=== PATIENT | female | born 1945 | race Caucasian/White ===

== ENCOUNTER → 2017-01-12 | Outpatient (CLI) | payer OTHER ==
[~2017-01-12] MED LIST: ADVAIR 500/501 E1 INH; AZACTAM IV; Accuneb 0.1.25 MG/3 INH; CHANTIX0.5 MG PO; DELTASONE10 MG PO; DYAZIDE 25 MG-31 CAP PO; FLEXERIL10 MG PO; HUMARA; HUMIRA40 MG/0.1 SC; INHALER; LEVOFLOXACIN500 MG PO; NAPROSYN500 MG PO; PREDNISONE20 MG PO; PRILOSEC20 MG PO; PROAIR HFA0.09 MG/AC IH; PROAIR HFA0.09 MG/AC INH; ROBITUSSIN5 ML PO; TURDOZA INH; VENTOLIN 02.5 MG/3 M INH; VITAMIN D50000 I2 PO; ZITHROMAX Z PA250 MG PO
== END | disposition home or self-care (01) ==
LOC: RAD 09:59
DX: J32.9 Chronic sinusitis, unspecified (principal); R51 Headache

== ENCOUNTER 2019-07-20 15:20 | Inpatient (IN) | payer OTHER ==
[~2019-07-20] VITALS: Ht 160 cm; Wt 142.4 kg
--- NOTE | ~2019-07-20 | EKG ---
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
--- NOTE | ~2019-07-20 | EKG ---
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
--- NOTE | ~2019-07-20 | EKG ---
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
--- NOTE | ~2019-07-20 | PR ---
[place], [place] PROGRESS NOTE [id number] #: [id number] ROOM: 528 DOCTOR: NATIVIDAD BOWER MDASHLIE BIRTHDATE: [birth year] DOS: 07/22/2019 SUBJECTIVE: She has reported reduction in symptoms of shortness of breath, cough and wheezing. There were no symptoms of chest pain. There were no symptoms of hemoptysis. Denies symptoms of headache, diplopia, nausea, vomiting, diarrhea, abdominal pain, hematemesis, melena or hematochezia. Denies any pain of the lower extremities. The patient was continuing empirical heparin therapy that was ordered yesterday until diagnosis of acute pulmonary embolism is excluded. V/Q scan was canceled and the patient underwent a CTA of the chest. REVIEW OF SYSTEMS: Otherwise, noted as negative. OBJECTIVE: GENERAL: The patient noted comfortable at this time, resting on the bed, sitting on the chair. VITAL SIGNS: Normal temperature, respiratory rate 18, heart rate 88, blood pressure 157/74. Heart rate noted 107 previously, which has been currently noted as less than 100. HEENT: Examination shows head was atraumatic. Eyes nonicterus. NECK: Supple. CARDIOVASCULAR: S1, S2 audible. LUNGS: Noted with decreased breath in the lungs bilaterally. ABDOMEN: Soft, nontender. Bowel sounds present. EXTREMITIES: The patient was noted without any acute edema. MUSCULOSKELETAL: Noted without any acute deformities. CENTRAL NERVOUS SYSTEM: Cranial nerves 2-12 intact. LABORATORY DATA: CBC that was done this morning, WBC count 17.2, hemoglobin and hematocrit normal, platelet count were normal. The BMP that was done this morning, BUN 25, creatinine 1.32. CT of the chest does not show any evidence of pulmonary embolism at the present time. Small left lower lobe subsegmental atelectasis was also noted. There was no evidence of acute pneumonia. IMPRESSION: Resolving acute exacerbation of chronic obstructive pulmonary disease with acute bronchitis. There was no evidence of pulmonary embolism, questionable deep venous thrombosis of the left lower extremity or cystic structure as well that warrant further investigation. PLAN OF TREATMENT: At this time, the heparin will be discontinued. Repeat ultrasound will be recommended to be done on Wednesday to assess the structure of the diagnosis still cannot be effectively made with ultrasound, certainly, CT of the chest will be indicated at that time. At this time, the patient would not be undergoing further CT scan to prevent contrast acute kidney injury. Other therapy, plan of management, care plan to be continued as in progress with usual care. Supportive care and other therapies. [place], [place] PROGRESS NOTE NAME: IAN ANDERSON UNIT #: [id number] ROOM: 528 DOCTOR: ASHLIE CALDERON MD BIRTHDATE: [birth year] ASHLIE HENSON MD CM:PNTRANS [id number] ASHLIE BOWER MD 07/23/19699 interface
--- NOTE | ~2019-07-20 | EKG ---
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
--- NOTE | ~2019-07-20 | PR ---
[place], [place] PROGRESS NOTE [id number] UN[facility] #: [id number] ROOM: 528 DOCTOR: NATIVIDAD BOWER MD,ASHLIE BIRTHDATE: [birth year] DOS: 07/24/2019 PULMONARY PROGRESS NOTE SUBJECTIVE: The patient noted comfortable at this time, resting on the bed, stating improvement in the symptoms of shortness of breath with gradual improvement in the ambulation. She denies symptoms of chest pain or cough. OBJECTIVE: VITAL SIGNS: Normal temperature, respiratory rate 20, heart rate 105, blood pressure 150/62. Pulse oxygen saturation on 3 liters nasal cannula 97% saturation recorded. HEENT: Examination shows head was atraumatic. Eyes nonicterus. NECK: Supple. CARDIOVASCULAR: S1, S2 is audible. LUNGS: The patient without any wheeze or crackles. ABDOMEN: Soft and nontender. Bowel sounds present. EXTREMITIES: The patient noted without any acute edema. IMPRESSION: Stable respiratory status was noted at the present time with resolving acute exacerbation of chronic obstructive pulmonary disease, rule out deep venous thrombosis of the lower extremity or other abnormalities. PLAN OF MANAGEMENT: Discharge planning is based on the ultrasound results. If the ultrasound results does determine the accurate pathology of lower extremity, she will be discharged. Otherwise, additional workup will be ordered accordingly. ASHLIE HENSON MD CM:PNTRANS [id number] ASHLIE BOWER MD 07/24/19 1402 interface
--- NOTE | ~2019-07-20 | PR ---
[place], [place] PROGRESS NOTE NAME: IAN ANDERSON UNIT #: [id number] ROOM: 528 DOCTOR: NATIVIDAD BOWER MD,ASHLIE BIRTHDATE: [birth year] DOS: 07/23/2019 PULMONARY PROGRESS NOTE SUBJECTIVE: The patient has been noted comfortable at this time with reduction of respiratory symptoms continued. She has not been ambulating more than her bed to the bathroom. Shortness of breath which has noted to be decreased for the patient gradually. Denies symptoms of chest pain, fever, chills or any acute wheezing at rest. OBJECTIVE: VITAL SIGNS: Normal temperature, respiratory rate 18, heart rate of 87, blood pressure 132/76, pulse oxygen saturation on 3 liters nasal cannula 93% saturation recorded. HEENT: Examination shows head was atraumatic. Eyes nonicterus. NECK: Supple. CARDIOVASCULAR: S1, S2 audible. LUNGS: Decreased breath sounds noted in the lungs bilaterally. ABDOMEN: Soft, nontender and obese. EXTREMITIES: The patient without any acute edema. IMPRESSION: Gradual and progressive resolution of acute exacerbation of chronic obstructive pulmonary disease, decreased respiratory symptoms was noted. PLAN OF CARE: Continue bronchodilators. Decrease the Solu-Medrol to 40 mg daily dosing at the present time. Ambulation was encouraged with use of a portable oxygen in the home setting. Potential discharge for the patient would be considered in the morning depending on further improvement of the respiratory status and symptoms. ASHLIE HENSON MD CM:PNTRANS [id number] ASHLIE BOWER MD 07/24/19 0415 interface
--- NOTE | ~2019-07-20 | CON ---
[place], [place] REPORT OF CONSULTATION [id number] UNIT #: [id number] ROOM: 528 DOCTOR: ASHLIE CALDERON MD BIRTHDATE: [birth year] DOS: 07/21/2019 PULMONARY CONSULTATION, EVALUATION, AND MANAGEMENT CONSULTATION REQUESTED BY: Hospitalist service. REASON FOR CONSULTATION: For assessment of shortness of breath. HISTORY OF PRESENT ILLNESS: This is a 73-year-old white female patient who has been noted acutely ill for the past 4 weeks. The patient stated symptoms of having coughing, chest congestion, and shortness of breath. I could not get out of the house. She has contacted her primary care physician and has been given Keflex with partial reduction of the respiratory symptom. The patient has contacted my office for assessment, was seen in the office transiently, as the patient in the waiting room has been noted in severe respiratory distress acutely The patient was noted with hyperventilation as well and significant shortness of breath. The chest auscultation noted decreased breath sounds, pulse oxygen saturation recorded was 78% on 3 liters nasal cannula. Ambulance was called. The patient was sent to the hospital for further care. The patient has been brought to the hospital and assessed in the Emergency Room and hospitalized. Chest x-ray was done on admission, which were not reported with any findings of acute congestive heart failure or acute pneumonia. Currently, the patient has been admitted to the hospital and further treated. REVIEW OF SYSTEMS: CONSTITUTIONAL: Fatigue and tiredness reported without any symptoms of fever or chills. EYES: Denies any burning, redness, or tenderness. EARS, NOSE, THROAT SYMPTOMS: Denies sore throat, hoarseness, or otalgia. CARDIOVASCULAR: Denies anginal symptoms of palpitations, edema of the lower extremity were reported. There were no symptoms of anginal pain. GASTROINTESTINAL: Denies dysphagia, nausea, vomiting, diarrhea, abdominal pain, hematemesis, melena, or hematochezia. SKIN: Denies any abnormal lesions or rashes. CENTRAL NERVOUS SYSTEM: Denies dizziness, headache, diplopia, or syncopal episodes. Remaining systems were reviewed that was noted all negative. PAST MEDICAL HISTORY: Known with history of: 1. COPD. 2. Gastroesophageal reflux. 3. Chronic hypoxic respiratory failure, use of oxygen supplementation, usually 3 liters nasal cannula. 4. Congestive heart failure, systolic and diastolic dysfunction at this time was unknown. 5. Psoriasis. 6. Essential hypertension. 7. Chronic obesity. 8. Rheumatoid arthritis. [place], [place] REPORT OF CONSULTATION NAME: IAN ANDERSON UNIT #: [id number] ROOM: 528 DOCTOR: ASHLIE CALDERON MD BIRTHDATE: [birth year] SOCIAL HISTORY: The patient lives at home. She is and has 4 children. Tobacco use reported from age of [age] years old, 1.5 pack of cigarettes until 07/2018. Denies history of alcohol use or illicit drugs. PAST SURGICAL HISTORY: 1. T and A. 2. Tubal ligation. 3. Partial hysterectomy. 4. Carpal tunnel release on the right wrist. FAMILY HISTORY: The patient's father at 52-year-old, complication of lung cancer. Mother at 72 with complication of myocardial infarction. HOME MEDICATIONS: Listed as ProAir HFA inhaler, Ventolin HFA inhaler, use of Advair 500/50, Lasix 40 mg oral, Singulair 10 mg orally daily, Prilosec 20 mg p.o. daily, and potassium 10 mEq p.o. daily as well. CURRENT MEDICATIONS: Which has been administered and given actively this hospitalization were Solu-Medrol 60 mg IV b.i.d., DuoNeb q.4 hours, IV Rocephin, and some other p.r.n. meds. DRUG ALLERGIES: NOTED ALLERGY TO THE FLU VACCINATION. PHYSICAL EXAMINATION: GENERAL: A 73-year-old female patient noted quite comfortable this morning of assessment. Height of 5 feet 3 inches, weight 314 pounds. VITAL SIGNS: For the patient, which are recorded shows a normal temperature, respiratory rate 20-28, heart rate 72-108, blood pressure 150/67-152/84. Pulse oxygen saturation on 3 liters nasal cannula 99% saturation recorded. HEENT: Shows head was atraumatic. Eyes nonicterus. NECK: Supple. It was obese. Decreased posterior pharyngeal space, high tongue base, crowding of soft tissue structures. CARDIOVASCULAR: S1, S2 audible. LUNGS: Decreased breath sounds noted in the lower portion of the lungs bilaterally. ABDOMEN: Soft, nontender. Bowel sounds present. EXTREMITIES: Edema of the extremities. MUSCULOSKELETAL: Without acute deformities. CENTRAL NERVOUS SYSTEM: Cranial nerves 2-12 intact. LABORATORY DATA: CBC yesterday in the emergency room, WBC count 11.6, hemoglobin, hematocrit, and platelet count was normal, and 1.4% eosinophils. PT/PTT were noted normal yesterday. CMP that was done on 07/20/2019, BUN 21, creatinine 1.34. Remaining electrolytes normal. Total protein elevated at 8.4 yesterday. Labs D-dimer minimally elevated at 0.66. Troponins were noted as normal. CBC that was done this morning as a normal CBC. CMP this morning, BUN 21, creatinine 1.11, and glucose 156. Remaining electrolytes remains normal. The review of the radiology data, chest x-ray that was done yesterday, one-view was reviewed, noted without any findings of acute congestive heart failure. [place], [place] REPORT OF CONSULTATION NAME: IAN ANDERSON UNIT #: [id number] ROOM: 528 DOCTOR: NATIVIDAD BOWER MD,ASHLIE BIRTHDATE: [birth year] Finding was noted limited in the lower portion of the lung because of the breast augmentation shadow. Ultrasound of the lower extremity was completed and reported with limited findings with questionable DVT, right popliteal vein. The image quality of this area were not noted optimal. The patient was recommended contrast enhanced CT scan lower extremity for further assessment. IMPRESSION: 1. The patient who has been currently admitted to the hospital noted symptoms of respiratory distress, [id number] hypoxic respiratory failure with acute exacerbation of chronic obstructive pulmonary disease. 2. Questionable deep venous thrombosis of the lower extremity to be excluded. 3. History of chronic severe obesity as well. 4. History of previous congestive heart failure as well, whether a preserved ejection fraction or reduced ejection fraction was unknown. 5. General anxiety disorder was also noted. 6. The patient with elevation of creatinine noted with may be related to intravascular volume depletion with improvement in creatinine was noted this morning. PLAN MANAGEMENT: Continuation of the corticosteroids and bronchodilators. Preferable to obtain CT of the chest as well and possible repeat ultrasound of the lower extremity could be done. Anticoagulants could be given until the diagnosis of pulmonary embolism is excluded. Continue oxygen supplementation, maintain pulse ox 92% or greater. If the patient develops any further distress arterial blood gas will be obtained for further assessment of ventilatory status. At this time, the patient's respiratory distress, had resolved and would not require any arterial blood gases immediately. Other therapy, plan of management. Additional treatment changes will be made based on progression of the illness. Supportive care, other plan of management therapy, plan of care. Usual medical management, other therapies. Further changes in the treatment will be done based on the progression of illness and available any new data on this hospitalization. Thanks for allowing me to participate in the care of this patient. ASHLIE HENSON MD CM:CONSTR:REPORT OF CONSULTATION 1322 07/22/19 0220 interface
[2019-07-20 15:25] VITALS: BP 159/67
[2019-07-20 15:55] LABS: BASO # 0.1 10*3/uL (0.0-0.1); BASO % 0.5 % (0.0-1.0); EOS # 0.2 10*3/uL (0.0-0.4); EOS % 1.4 % (1.0-4.0); HEMATOCRIT 42.2 % (37.0-47.0); HEMOGLOBIN 13.6 g/dl (12.0-16.0); LYMPH # 3.4 10*3/uL (1.3-4.4); LYMPH % 29.5 % (27.0-41.0); MEAN CELL VOLUME 96.1 fl (81.0-99.0); MEAN CORPUSCULAR HGB CONC 32.2 g/dl (33.0-37.0); MEAN PLATELET VOLUME 10.3 fl (9.6-12.3); MONO % 8.6 % (3.0-9.0); NEUT # 6.9 10*3/uL (2.3-7.9); NEUT % 59.6 % (47.0-73.0); PLATELET COUNT AUTOMATED 218 10*3/uL (130-400); RED BLOOD COUNT 4.39 10*6/uL (4.10-5.10); RED CELL DISTRI WIDTH 13.3 % (0-14.5); WHITE BLOOD COUNT 11.6 10*3/uL (4.8-10.8)
[2019-07-20 16:08] LABS: ACT PARTIAL THROMBO TIME 26.9 SECONDS (20.0-32.1)
[2019-07-20 16:11] LABS: ALBUMIN 3.5 gm/dl (3.1-4.5); CREATININE 1.34 mg/dL (0.55-1.02); POTASSIUM 4.3 mmol/L (3.5-5.1); TOTAL PROTEIN 8.4 gm/dL (6.4-8.2)
[2019-07-20 16:12] LABS: TROPONIN I 0.023 ng/ml (<0.045)
--- NOTE | 2019-07-20 16:13 | NUR ---
2.6 LACTIC ACID CALLED CRITICAL AT THIS TIME. DR BAILEY NOTIFIED.
[2019-07-20 16:29] VITALS: BP 169/65
[2019-07-20 17:15] VITALS: BP 168/78
[2019-07-20 18:16] VITALS: BP 172/70
--- NOTE | 2019-07-20 18:19 | NUR ---
PT HAS DRY/SCALY SKIN TO BILATERAL LOWER LEGS. LEGS ARE TIGHT WITH EDEMA. THERE ARE NO OPEN WOUNDS. QUIN BURTON
--- NOTE | 2019-07-20 18:35 | NUR ---
A 73, admitted to 5E, under the services of BRIANNA Hogue DO with a diagnosis of ACUTE RESPIRATORY FAILURE WITH HYPOXIA, SEVERE SEPSIS, PNEUMONITIS. Chief complaint is SHORTNESS OPF BREATH. Patient arrived via bed from ER. Monitor applied. Initial assessment completed. Vital signs taken and recorded. BRIANNA HOGUE DO notified of admission to the unit. Orders received. See assessment for past medical history, medications and allergies. Patient and/or family oriented to unit. [facility] visitation policy reviewed. Clothing/patient valuable form completed. KRISTOPHER EPPERSON
[2019-07-20] MEDS ORDERED: LASIX40 MG PO (19:00)
[2019-07-20] MEDS ORDERED: KLOR-CON M1010 ME1 PO (19:01)
[2019-07-20] MEDS ORDERED: CYCLOBENZAPRINE10 MG PO (19:02)
[2019-07-20] MEDS ORDERED: PRILOSEC20 M1 PO (19:02)
[2019-07-20] MEDS ORDERED: SINGULAIR10 M1 PO (19:03)
--- NOTE | 2019-07-20 19:36 | NUR ---
DR. MCALLISTER NOTIFIED OF CRITICAL LACTIC ACID OF 2.5.
--- NOTE | 2019-07-20 19:37 | NUR ---
DR. HENSON NOTIFIED OF CONSULT PER ORDER.
[2019-07-21] VITALS: BP 150/82
[2019-07-21 06:23] LABS: BASO % 0.2 % (0.0-1.0); HEMATOCRIT 40.6 % (37.0-47.0); HEMOGLOBIN 13.1 g/dl (12.0-16.0); LYMPH # 1.2 10*3/uL (1.3-4.4); LYMPH % 11.5 % (27.0-41.0); MEAN CELL VOLUME 95.1 fl (81.0-99.0); MEAN CORPUSCULAR HGB 30.7 pg (27.0-31.0); MEAN CORPUSCULAR HGB CONC 32.3 g/dl (33.0-37.0); MEAN PLATELET VOLUME 10.3 fl (9.6-12.3); MONO # 0.2 10*3/uL (0.1-1.0); NEUT % 85.7 % (47.0-73.0); PLATELET COUNT AUTOMATED 211 10*3/uL (130-400); RED BLOOD COUNT 4.27 10*6/uL (4.10-5.10); RED CELL DISTRI WIDTH 13.5 % (0-14.5); WHITE BLOOD COUNT 10.5 10*3/uL (4.8-10.8)
[2019-07-21 06:39] LABS: ALBUMIN 3.1 gm/dl (3.1-4.5); CREATININE 1.11 mg/dL (0.55-1.02); PHOSPHOROUS 2.6 mg/dL (2.5-4.9)
--- NOTE | 2019-07-21 08:43 | NUR ---
Occupational Therapy referral received and chart reviewed. Patient to have further testing today to r/o pulmonary emboli. OT will wait for further evaluation until testing completed. Thank you. Estrellita Leon OTR/l
--- NOTE | 2019-07-21 09:30 | NUR ---
PHYSICAL THERAPY Physical therapy referral received. Patient being ruled out for pulmonary embolism. Awaiting results prior to attempting PT evaluation. thank you Josie Merida, PT, DPT
--- NOTE | 2019-07-21 11:14 | NUR ---
Patient not available for Occupational Therapy evaluation as she is leaving her room for testing via w/c. OTR will attempt at a later time. Estrellita Leon OTR/L
--- NOTE | 2019-07-21 11:15 | NUR ---
PHYSICAL THERAPY Physical therapy evaluation attempted. Pt leaving room for procedure. Will attempt evaluation when results are known for lung scan and Pulmonary embolism. Thank you Josie gray, PT, DPT
[2019-07-21 12:00] VITALS: BP 152/84
--- NOTE | 2019-07-21 12:38 | NUR ---
Document Imaging Specialist in to talk to patient. Patient states lives at HOME with . There are FEW steps in the home. Physician: [facility]acy: [facility]: NO Patient's level of ADLs: INDEPENDENT Patient has working utilities: YES DME: OXYGEN, PROTABLE TANKS, NEBULIZER Follow-up physician's appointment after d/c: WILL BE MADE BY HOSPITALIST NURSE DIRECTOR ON DISCHARGE Does patient want to access PORTAL?: NO Discharge plan PT LIVES AT HOME WITH HER AND IS INDEPENDENT IN HER CARE. DENIES SHE WILL HAVE ANY NEEDS ON DISCHARGE. STATES SHE HAS OXYGEN, PORTABLE TANKS, AND NEBULIZER. PT STATES SHE GETS O2 THROUGHT [place] IN [place]. PLAN IS TO RETURN HOME WHEN MEDICALLY STABLE. WILL CONTINUE TO FOLLOW. WILL TAKE PT HOME ON DISCHARGE.. SHERIF DODD
[2019-07-21 14:58] LABS: ABG BASE EXCESS -3.3 mmol/L (-2.0-2.0); ABG HCO3 21.3 mmol/l (22-26); ABG O2 SATURATION 98.4 % (95-97); ARTERIAL BLOOD GAS PCO2 38.8 mmHg (35-45); ARTERIAL BLOOD GAS PH 7.358 (7.35-7.45)
[2019-07-21 15:28] LABS: CREATININE 1.31 mg/dL (0.55-1.02); POTASSIUM 4.2 mmol/L (3.5-5.1); TROPONIN I 0.02 ng/ml (<0.045)
[2019-07-21 17:10] VITALS: BP 175/68
[2019-07-21 20:00] VITALS: BP 152/60
[2019-07-22] VITALS: BP 140/74; BP 169/77
[2019-07-22 06:22] LABS: CREATININE 1.22 mg/dL (0.55-1.02); POTASSIUM 3.7 mmol/L (3.5-5.1)
--- NOTE | 2019-07-22 06:25 | NUR ---
APTT 79.2. HEPARIN GTT OFF FOR 1 HOUR. PATIENT RESTING IN RECLINER.
[2019-07-22 06:38] LABS: BASO % 0.2 % (0.0-1.0); HEMATOCRIT 38.7 % (37.0-47.0); HEMOGLOBIN 12.2 g/dl (12.0-16.0); LYMPH # 1.4 10*3/uL (1.3-4.4); LYMPH % 8.2 % (27.0-41.0); MEAN CORPUSCULAR HGB 30.9 pg (27.0-31.0); MEAN CORPUSCULAR HGB CONC 31.5 g/dl (33.0-37.0); MEAN PLATELET VOLUME 11.2 fl (9.6-12.3); MONO # 0.8 10*3/uL (0.1-1.0); MONO % 4.5 % (3.0-9.0); NEUT # 14.9 10*3/uL (2.3-7.9); NEUT % 86.3 % (47.0-73.0); PLATELET COUNT AUTOMATED 215 10*3/uL (130-400); RED BLOOD COUNT 3.95 10*6/uL (4.10-5.10); RED CELL DISTRI WIDTH 14.1 % (0-14.5); WHITE BLOOD COUNT 17.2 10*3/uL (4.8-10.8)
--- NOTE | 2019-07-22 07:58 | NUR ---
24 HR chart check completed.
[2019-07-22 08:00] VITALS: BP 140/62
--- NOTE | 2019-07-22 08:00 | NUR ---
Patient resting quietly with no c/o discomfort. Respirations easy and regular. Vital signs stable. No overt distress. CIRA GOMEZ
[2019-07-22 12:00] VITALS: BP 157/74
--- NOTE | 2019-07-22 12:00 | NUR ---
Patient resting quietly with no c/o discomfort. Respirations easy and regular. Vital signs stable. No overt distress. CIRA GOMEZ
[2019-07-22 16:00] VITALS: BP 136/77
--- NOTE | 2019-07-22 16:00 | NUR ---
Patient resting quietly with no c/o discomfort. Respirations easy and regular. Vital signs stable. No overt distress. CIRA GOMEZ
--- NOTE | 2019-07-22 19:32 | NUR ---
24 HOUR CHART CHECK COMPLETED
[2019-07-22 19:55] VITALS: BP 148/72
[2019-07-22 20:00] VITALS: BP 151/51
--- NOTE | 2019-07-22 20:15 | NUR ---
PATIENT ASSESSMENT COMPLETED AT THIS TIME. PATIENT DENIES ANY CHEST PAIN OR SHORTNESS OF BREATH AT THIS TIME. ASSESSMENT NEGATIVE, PATIENT IN RECLINER AT THIS TIME STATED THAT IS WHERE SHE SLEEPS AND IS COMFORTABLE. CALL LIGHT WITHIN REACH WILL CONTINUE TO MONITOR.
[2019-07-23] VITALS: BP 136/48
--- NOTE | 2019-07-23 | NUR ---
PATIENT RESTING COMFORTABLY IN RECLINER AT THIS TIME WATCHING TELEVISION. DENIES ANY DISTRESS AT THIS TIME. CALL LIGHT WITHIN REACH. WILL CONTINUE TO MONITOR.
[2019-07-23 07:36] LABS: BASO % 0.1 % (0.0-1.0); HEMATOCRIT 38.8 % (37.0-47.0); HEMOGLOBIN 12.1 g/dl (12.0-16.0); LYMPH % 8.3 % (27.0-41.0); MEAN CELL VOLUME 97.5 fl (81.0-99.0); MEAN CORPUSCULAR HGB 30.4 pg (27.0-31.0); MEAN CORPUSCULAR HGB CONC 31.2 g/dl (33.0-37.0); MEAN PLATELET VOLUME 10.8 fl (9.6-12.3); MONO # 0.6 10*3/uL (0.1-1.0); MONO % 4.6 % (3.0-9.0); NEUT # 10.6 10*3/uL (2.3-7.9); NEUT % 85.9 % (47.0-73.0); PLATELET COUNT AUTOMATED 211 10*3/uL (130-400); RED BLOOD COUNT 3.98 10*6/uL (4.10-5.10); RED CELL DISTRI WIDTH 14.2 % (0-14.5); WHITE BLOOD COUNT 12.3 10*3/uL (4.8-10.8)
[2019-07-23 07:44] LABS: ACT PARTIAL THROMBO TIME 25.3 SECONDS (20.0-32.1)
[2019-07-23 07:51] VITALS: BP 132/76
[2019-07-23 08:08] LABS: ALBUMIN 3.2 gm/dl (3.1-4.5); CREATININE 1.15 mg/dL (0.55-1.02); POTASSIUM 3.9 mmol/L (3.5-5.1)
[2019-07-23 08:10] LABS: TOTAL PROTEIN 7.6 gm/dL (6.4-8.2)
--- NOTE | 2019-07-23 09:49 | NUR ---
Shift chart check completed.
--- NOTE | 2019-07-23 09:59 | NUR ---
SPOKE WITH DR. GORDON REGARDING PATIENTS WISHING TO RECIEVE THE FLU VACCINE. STATED HE WOULD PUT THE ORDER IN
--- NOTE | 2019-07-23 10:54 | NUR ---
Patient resting quietly with no c/o discomfort. Respirations easy and regular. Vital signs stable. No overt distress. HISSOM,RENE
[2019-07-23 12:00] VITALS: BP 162/71
[2019-07-23 16:00] VITALS: BP 154/71
--- NOTE | 2019-07-23 18:22 | NUR ---
Patient resting quietly with no c/o discomfort. Respirations easy and regular. Vital signs stable. No overt distress. HISSOM,RENE
--- NOTE | 2019-07-23 19:35 | NUR ---
24 HOUR CHART CHECK COMPLETED
[2019-07-23 20:00] VITALS: BP 164/73
--- NOTE | 2019-07-23 20:20 | NUR ---
PATIENT ASSESSMENT COMPLETE AT THIS TIME WITHOUT INCIDENT. PATIENT UP TO BATHROOM AND IS VISUALLY SHORT OF BREATH ON NC3 LPM, INSTRUCTED PATIENT ON PURSED LIP BREATHING TECHNIQUE AT THIS TIME, PATIENT AMBULATED BACK TO CHAIR AND RECOVERED WITHIN TWO MINUTES. PATIENT DENIES ANY DISTESS OR PAIN AT THIS TIME. CALL LIGHT WITHIN REACH, WILL CONTINUE TO MONITOR.
[2019-07-24] VITALS: BP 165/74
--- NOTE | 2019-07-24 00:42 | NUR ---
PATIENT RESTING IN A POSITION OF COMFORT IN RECLINER. RESPIRATIONS EASY AND NONLABORED, NC 3LPM IN USE. CALL LIGHT WITHIN REACH, WILL CONTINUE TO MONITOR
--- NOTE | 2019-07-24 04:20 | NUR ---
SLEEPING IN RECLINER, RESPIRATIONS EASY AND NONLABORED, NC 3LPM IN USE. CALL LIGHT WITHIN REACH. WILL CONTINUE TO MONITOR.
--- NOTE | 2019-07-24 06:00 | NUR ---
PATIENT REQUESTED DRESSING CHANGE ON IV IN LEFT HAND DUE TO DRIED BLOOD UNDER DRESSING AND ON TAPE. DRESSING REMOVED, SITE CLEANED, EXTENSION TUBING CAUGHT IN PATIENT FINGERS SHE WAS TRYING TO ASSIST AND IV CATHETER WAS PULLED OUT. PRESSURE HELD ON SITE, NO BLEEDING OR HEMATOMA NOTED AT THIS TIME. DRESSING APPLIED.
[2019-07-24 06:35] LABS: HEMATOCRIT 39.1 % (37.0-47.0); HEMOGLOBIN 12.5 g/dl (12.0-16.0); MEAN CELL VOLUME 95.8 fl (81.0-99.0); MEAN CORPUSCULAR HGB 30.6 pg (27.0-31.0); MEAN PLATELET VOLUME 10.7 fl (9.6-12.3); PLATELET COUNT AUTOMATED 231 10*3/uL (130-400); RED BLOOD COUNT 4.08 10*6/uL (4.10-5.10); WHITE BLOOD COUNT 14.1 10*3/uL (4.8-10.8)
[2019-07-24 06:50] LABS: ALBUMIN 3.4 gm/dl (3.1-4.5); CREATININE 1.41 mg/dL (0.55-1.02); POTASSIUM 3.4 mmol/L (3.5-5.1); TOTAL PROTEIN 7.6 gm/dL (6.4-8.2)
[2019-07-24 07:51] LABS: PLATELET SUFFICIENCY NORMAL (NORMAL); TOTAL CELLS COUNTED 100 #CELLS
[2019-07-24 08:00] VITALS: BP 150/62
--- NOTE | 2019-07-24 09:00 | NUR ---
case management visits with patient, she stated she may be discharged to home today and denies any home needs, case management will follow
--- NOTE | 2019-07-24 09:10 | NUR ---
Hep Lock discontinued. Site asymptomatic. Pressure applied. Sterile dressing applied. SOM,MAGGI
--- NOTE | 2019-07-24 09:11 | NUR ---
IV started right forearm with #22 protective cath after 1 attempts. Site prepped with Chloroprep. Sterile dressing applied. Patient tolerated procedure well. RENE MATSON
--- NOTE | 2019-07-24 09:21 | NUR ---
PHYSICAL THERAPY Per chart review. Pt has pending venous US reordered to rule out DVT. Physical therapy evaluation to be on hold until results have been received. Thank you Josie Merida, PT, DPT
--- NOTE | 2019-07-24 09:31 | NUR ---
DR. QUINN IN TO SEE PATIENT
--- NOTE | 2019-07-24 09:45 | NUR ---
PT REQUESTING TO HOLD HER LASIX UNTIL SHE RETURNS FROM HER ULTRASOUND
--- NOTE | 2019-07-24 09:55 | NUR ---
Shift chart check completed.
--- NOTE | 2019-07-24 11:18 | NUR ---
Patient resting quietly with no c/o discomfort. Respirations easy and regular. Vital signs stable. No overt distress. HISSOM,RENE
[2019-07-24 12:00] VITALS: BP 132/69
--- NOTE | 2019-07-24 12:00 | NUR ---
PATIENT TAKEN TO ULTRASOUND VIA WHEELCHAIR
--- NOTE | 2019-07-24 13:00 | NUR ---
RECEIVED CRITICAL REPORT FROM [facility] ON PT. DR DOS SANTOS OF [facility] STATES THAT PT HAS DVT IN RIGHT LEG.
--- NOTE | 2019-07-24 13:03 | NUR ---
NOTIFIED NATALI QUINN NP OF DVT IN PT RIGHT LEG.
--- NOTE | 2019-07-24 13:05 | NUR ---
NOTIFIED JOSEPHINE LÓPEZ OF PT DVT AND VERBAL ORDERS GIVEN BY NATALI QUINN NP.
--- NOTE | 2019-07-24 13:07 | NUR ---
SPOKE WITH DR. HENSON REGARDING ULTRASOUND RESULTS. STATED TO CALL DR QUINN AND TELL HER TO CALL HIM
--- NOTE | 2019-07-24 13:08 | NUR ---
SPOKE WITH DR QUINN AND INFORMED HER THAT DR HENSON WANTED HER TO CALL HIM
[2019-07-24] MEDS ORDERED: ZITHROMAX500 MG PO (13:13)
[2019-07-24] MEDS ORDERED: PREDNISONE10 MG PO (13:13)
[2019-07-24] MEDS ORDERED: XARELTO1 EACH PO (13:17)
[2019-07-24] MEDS ORDERED: XARELTO20 M1 PO (13:38)
[2019-07-24] MEDS ORDERED: VITAMIN D50000 UNIT PO (13:58)
--- NOTE | 2019-07-24 14:59 | NUR ---
Discharge instructions reviewed with patient/family. Patient receptive and verbalizes understanding. Follow-up care arranged. Written instructions given to patient/family. RENE MATSON
--- NOTE | 2019-07-24 14:59 | NUR ---
The Discharge Plan/Instructions have been completed.
== END 2019-07-24 14:59 | disposition home or self-care (01) | DRG 871 ==
LOC: ED 15:20 → 5E 17:50 → EDHOLD 17:50 → 5E 18:22
PROVIDERS: Emergency Medicine; Student in an Organized Health Care Education/Training Program; ADMIT Internal Medicine
DX: A41.9 Sepsis, unspecified organism (principal); J18.9 Pneumonia, unspecified organism; N17.0 Acute kidney failure with tubular necrosis; J96.21 Acute and chronic respiratory failure with hypoxia; E87.2 Acidosis; J44.0 Chronic obstructive pulmonary disease with (acute) lower respiratory infection; I82.401 Acute embolism and thrombosis of unspecified deep veins of right lower extremity; J44.1 Chronic obstructive pulmonary disease with (acute) exacerbation; I50.42 Chronic combined systolic (congestive) and diastolic (congestive) heart failure; Z68.43 Body mass index [BMI] 50.0-59.9, adult; R65.20 Severe sepsis without septic shock; K21.9 Gastro-esophageal reflux disease without esophagitis; L40.9 Psoriasis, unspecified; J20.9 Acute bronchitis, unspecified; F41.1 Generalized anxiety disorder; I11.0 Hypertensive heart disease with heart failure; E66.9 Obesity, unspecified; M06.9 Rheumatoid arthritis, unspecified; Z99.81 Dependence on supplemental oxygen; Z90.710 Acquired absence of both cervix and uterus; Z90.711 Acquired absence of uterus with remaining cervical stump; Z98.51 Tubal ligation status; Z88.7 Allergy status to serum and vaccine; Z79.899 Other long term (current) drug therapy

== ENCOUNTER 2021-01-07 22:49 | Inpatient (IN) | payer OTHER ==
[~2021-01-07] VITALS: Ht 160 cm; Wt 131.0 kg
[~2021-01-07 22:49] MED LIST changes: +CYCLOBENZAPRINE10 MG PO; +KLOR-CON M1010 ME1 PO; +LASIX40 MG PO; +PREDNISONE10 MG PO; +PRILOSEC20 M1 PO; +SINGULAIR10 M1 PO; +VITAMIN D50000 UNIT PO; +XARELTO1 EACH PO; +XARELTO20 M1 PO; +ZITHROMAX500 MG PO
[2021-01-07 22:54] VITALS: BP 154/65
[2021-01-07 23:26] LABS: BASO # 0.1 10*3/uL (0.0-0.1); BASO % 0.5 % (0.0-1.0); EOS # 0.2 10*3/uL (0.0-0.4); EOS % 1.2 % (1.0-4.0); HEMATOCRIT 39.3 % (37.0-47.0); LYMPH # 2.7 10*3/uL (1.3-4.4); LYMPH % 21.6 % (27.0-41.0); MEAN CORPUSCULAR HGB 29.5 pg (27.0-31.0); MEAN CORPUSCULAR HGB CONC 32.1 g/dl (33.0-37.0); MEAN PLATELET VOLUME 10.6 fl (9.6-12.3); MONO # 1.1 10*3/uL (0.1-1.0); MONO % 8.8 % (3.0-9.0); NEUT # 8.5 10*3/uL (2.3-7.9); NEUT % 67.5 % (47.0-73.0); PLATELET COUNT AUTOMATED 181 10*3/uL (130-400); RED BLOOD COUNT 4.27 10*6/uL (4.10-5.10); RED CELL DISTRI WIDTH 13.6 % (0-14.5); WHITE BLOOD COUNT 12.6 10*3/uL (4.8-10.8)
[2021-01-07 23:43] LABS: ALKALINE PHOSPHATASE 92 U/L (45-117); BUN 17 mg/dl (7-24); CHLORIDE 102 mmol/L (98-107); CREATININE 1.29 mg/dL (0.55-1.02); POTASSIUM 3.8 mmol/L (3.5-5.1); SGOT/AST 13 IU/L (3-35); SGPT/ALT 14 U/L (12-78); SODIUM 135 mmol/L (136-145); TOTAL PROTEIN 8.9 gm/dL (6.4-8.2)
[2021-01-07 23:46] LABS: TROPONIN I < 0.015 ng/ml (<0.045)
[2021-01-08] MEDS ORDERED: Coumadin5 MG PO (03:52)
[2021-01-08] MEDS ORDERED: COSENTYX P150 MG/11 SQ (03:55)
[2021-01-08] MEDS ORDERED: FLUOCINOLONE AC15 GM T (03:58)
[2021-01-08] MEDS ORDERED: INCRUSE ELLI62.5 MCG INH (04:00)
[2021-01-08] MEDS ORDERED: ADVAIR 250/501 EA INH (04:01)
[2021-01-08] MEDS ORDERED: VENT7GM INH (04:02)
[2021-01-08 04:22] LABS: MEAN CELL VOLUME 91.3 fl (81.0-99.0); MEAN CORPUSCULAR HGB 29.3 pg (27.0-31.0); MEAN CORPUSCULAR HGB CONC 32.1 g/dl (33.0-37.0); MEAN PLATELET VOLUME 9.9 fl (9.6-12.3); RED BLOOD COUNT 4.27 10*6/uL (4.10-5.10); RED CELL DISTRI WIDTH 13.6 % (0-14.5)
[2021-01-08 04:23] LABS: PLATELET COUNT AUTOMATED 300 10*3/uL (130-400)
[2021-01-08 04:29] VITALS: BP 150/71
[2021-01-08 04:33] LABS: ACT PARTIAL THROMBO TIME 37.1 SECONDS (20.0-32.1); INTERNATIONAL NORM RATIO 1.8 (2.0-3.5)
[2021-01-08 04:37] LABS: ALBUMIN 3.1 gm/dl (3.1-4.5); CREATININE 1.2 mg/dL (0.55-1.02); POTASSIUM 3.7 mmol/L (3.5-5.1)
[2021-01-08 04:39] LABS: FREE T4 1.29 ng/dl (0.76-1.46)
[2021-01-08 04:44] LABS: THYROID STIM HORMONE (HS) 0.993 uIU/ml (0.358-4.75)
[2021-01-08 04:45] LABS: PLATELET SUFFICIENCY NORMAL (NORMAL); TOTAL CELLS COUNTED 100 #CELLS
[2021-01-08 07:30] VITALS: BP 139/64
[2021-01-08 08:20] VITALS: BP 133/52
[2021-01-08 12:00] VITALS: BP 138/51
[2021-01-08 16:00] VITALS: BP 146/42
[2021-01-08 20:00] VITALS: BP 147/79
[2021-01-09] VITALS: BP 140/65
[2021-01-09 06:09] LABS: BASO % 0.1 % (0.0-1.0); HEMATOCRIT 37.9 % (37.0-47.0); LYMPH # 1.6 10*3/uL (1.3-4.4); LYMPH % 9.9 % (27.0-41.0); MEAN CELL VOLUME 91.8 fl (81.0-99.0); MEAN CORPUSCULAR HGB 29.3 pg (27.0-31.0); MEAN CORPUSCULAR HGB CONC 31.9 g/dl (33.0-37.0); MEAN PLATELET VOLUME 10.4 fl (9.6-12.3); MONO # 0.9 10*3/uL (0.1-1.0); MONO % 5.6 % (3.0-9.0); NEUT # 13.3 10*3/uL (2.3-7.9); NEUT % 83.6 % (47.0-73.0); PLATELET COUNT AUTOMATED 294 10*3/uL (130-400); RED BLOOD COUNT 4.13 10*6/uL (4.10-5.10); RED CELL DISTRI WIDTH 13.7 % (0-14.5); WHITE BLOOD COUNT 15.9 10*3/uL (4.8-10.8)
[2021-01-09 06:10] LABS: CREATININE 1.2 mg/dL (0.55-1.02); POTASSIUM 3.7 mmol/L (3.5-5.1)
[2021-01-09 06:20] LABS: INTERNATIONAL NORM RATIO 1.2 (2.0-3.5)
[2021-01-09 08:47] VITALS: BP 108/84
[2021-01-09 10:00] VITALS: BP 190/93
[2021-01-09 11:42] LABS: ABG BASE EXCESS -1.6 mmol/L (-2.0-2.0); ARTERIAL BLOOD GAS PH 7.322 (7.35-7.45); ARTERIAL BLOOD GAS PO2 405.6 (80-90)
[2021-01-09 14:46] LABS: ABG BASE EXCESS -0.2 mmol/L (-2.0-2.0); ARTERIAL BLOOD GAS PH 7.373 (7.35-7.45); ARTERIAL BLOOD GAS PO2 65.4 (80-90)
[2021-01-09 16:00] VITALS: BP 106/41
[2021-01-09 17:26] VITALS: BP 119/43
[2021-01-09 20:00] VITALS: BP 115/43
[2021-01-10] VITALS: BP 111/44
[2021-01-10 04:03] VITALS: BP 115/45
[2021-01-10 06:08] LABS: ALBUMIN 2.8 gm/dl (3.1-4.5); CREATININE 1.13 mg/dL (0.55-1.02); POTASSIUM 3.8 mmol/L (3.5-5.1)
[2021-01-10 06:09] LABS: TOTAL PROTEIN 7.4 gm/dL (6.4-8.2)
[2021-01-10 06:46] LABS: BASO % 0.1 % (0.0-1.0); HEMATOCRIT 35.7 % (37.0-47.0); LYMPH # 1.1 10*3/uL (1.3-4.4); LYMPH % 7.3 % (27.0-41.0); MEAN CORPUSCULAR HGB 29.3 pg (27.0-31.0); MEAN CORPUSCULAR HGB CONC 30.8 g/dl (33.0-37.0); MEAN PLATELET VOLUME 10.7 fl (9.6-12.3); MONO # 1.1 10*3/uL (0.1-1.0); MONO % 7.7 % (3.0-9.0); NEUT # 12.4 10*3/uL (2.3-7.9); NEUT % 84.1 % (47.0-73.0); PLATELET COUNT AUTOMATED 282 10*3/uL (130-400); RED BLOOD COUNT 3.76 10*6/uL (4.10-5.10); RED CELL DISTRI WIDTH 13.9 % (0-14.5); WHITE BLOOD COUNT 14.7 10*3/uL (4.8-10.8)
[2021-01-10 06:53] LABS: MEAN CELL VOLUME 94.9 fl (81.0-99.0)
[2021-01-10 08:00] VITALS: BP 113/47
[2021-01-10 08:06] LABS: ABG BASE EXCESS 1.2 mmol/L (-2.0-2.0); ARTERIAL BLOOD GAS PH 7.373 (7.35-7.45); ARTERIAL BLOOD GAS PO2 94.5 (80-90)
[2021-01-10] MEDS ORDERED: MUCUS RELIEF600 MG PO (10:53)
[2021-01-10] MEDS ORDERED: NOVAPLUS AZITH500 MG IV (10:53)
[2021-01-10] MEDS ORDERED: CEFTRIAXONE1 GM IJ (10:53)
[2021-01-10 12:00] VITALS: BP 115/44
[2021-01-10 14:29] LABS: ARTERIAL BLOOD GAS PH 7.396 (7.35-7.45); ARTERIAL BLOOD GAS PO2 82.2 (80-90)
[2021-01-10 16:00] VITALS: BP 150/62
[2021-01-10 20:00] VITALS: BP 132/55
[2021-01-11] VITALS: BP 112/55
[2021-01-11 04:00] VITALS: BP 128/55
[2021-01-11 08:00] VITALS: BP 145/68
== END 2021-01-11 10:33 | disposition short-term general hospital (02) | DRG 871 ==
LOC: ED 22:49 → ICCU 01-08 03:09 → 5E 01-08 03:09 → EDHOLD 01-08 03:09 → 5E 01-08 07:32 → ICCU 01-09 09:55
PROVIDERS: Emergency Medicine; Internal Medicine; Internal Medicine Critical Care Medicine; Social Worker Clinical; ADMIT Family Medicine; ATTEND Family Medicine
PROC: 5A1935Z Respiratory Ventilation, Less than 24 Consecutive Hours (ICD-10-PCS; principal; 2021-01-09)
PROC: 0BH17EZ Insertion of Endotracheal Airway into Trachea, Via Natural or Artificial Opening (ICD-10-PCS; 2021-01-09)
PROC: 0BC18ZZ Extirpation of Matter from Trachea, Via Natural or Artificial Opening Endoscopic (ICD-10-PCS; 2021-01-09)
PROC: 0BC98ZZ Extirpation of Matter from Lingula Bronchus, Via Natural or Artificial Opening Endoscopic (ICD-10-PCS; 2021-01-09)
PROC: 0BC48ZZ Extirpation of Matter from Right Upper Lobe Bronchus, Via Natural or Artificial Opening Endoscopic (ICD-10-PCS; 2021-01-09)
PROC: 0BC88ZZ Extirpation of Matter from Left Upper Lobe Bronchus, Via Natural or Artificial Opening Endoscopic (ICD-10-PCS; 2021-01-09)
PROC: 0BC58ZZ Extirpation of Matter from Right Middle Lobe Bronchus, Via Natural or Artificial Opening Endoscopic (ICD-10-PCS; 2021-01-09)
PROC: 0BC38ZZ Extirpation of Matter from Right Main Bronchus, Via Natural or Artificial Opening Endoscopic (ICD-10-PCS; 2021-01-09)
PROC: 0BC78ZZ Extirpation of Matter from Left Main Bronchus, Via Natural or Artificial Opening Endoscopic (ICD-10-PCS; 2021-01-09)
PROC: 0BC68ZZ Extirpation of Matter from Right Lower Lobe Bronchus, Via Natural or Artificial Opening Endoscopic (ICD-10-PCS; 2021-01-09)
PROC: 0BCB8ZZ Extirpation of Matter from Left Lower Lobe Bronchus, Via Natural or Artificial Opening Endoscopic (ICD-10-PCS; 2021-01-09)
DX: A41.9 Sepsis, unspecified organism (principal); J18.9 Pneumonia, unspecified organism; J44.1 Chronic obstructive pulmonary disease with (acute) exacerbation; C34.91 Malignant neoplasm of unspecified part of right bronchus or lung; E87.1 Hypo-osmolality and hyponatremia; E44.1 Mild protein-calorie malnutrition; I82.4Z2 Acute embolism and thrombosis of unspecified deep veins of left distal lower extremity; J44.0 Chronic obstructive pulmonary disease with (acute) lower respiratory infection; Z68.43 Body mass index [BMI] 50.0-59.9, adult; R73.9 Hyperglycemia, unspecified; K21.9 Gastro-esophageal reflux disease without esophagitis; L40.9 Psoriasis, unspecified; R91.8 Other nonspecific abnormal finding of lung field; I50.9 Heart failure, unspecified; I11.0 Hypertensive heart disease with heart failure; E83.41 Hypermagnesemia; E66.01 Morbid (severe) obesity due to excess calories; Z86.718 Personal history of other venous thrombosis and embolism; Z90.710 Acquired absence of both cervix and uterus; Z82.49 Family history of ischemic heart disease and other diseases of the circulatory system; Z80.1 Family history of malignant neoplasm of trachea, bronchus and lung; Z98.51 Tubal ligation status; Z79.01 Long term (current) use of anticoagulants

== ENCOUNTER 2021-07-26 20:37 | Inpatient (IN) | payer MEDICARE ==
[~2021-07-26] VITALS: Ht 160 cm; Wt 86.0 kg
[~2021-07-26 20:37] MED LIST changes: +ADVAIR 250/501 EA INH; +CEFTRIAXONE1 GM IJ; +COSENTYX P150 MG/11 SQ; +Coumadin5 MG PO; +FLUOCINOLONE AC15 GM T; +INCRUSE ELLI62.5 MCG INH; +MUCUS RELIEF600 MG PO; +NOVAPLUS AZITH500 MG IV; +VENT7GM INH
[2021-07-26 20:42] VITALS: BP 121/58
[2021-07-26 21:04] LABS: BASO # 0.1 10*3/uL (0.0-0.1); BASO % 0.3 % (0.0-1.0); EOS # 0.4 10*3/uL (0.0-0.4); EOS % 2.7 % (1.0-4.0); HEMATOCRIT 36.2 % (37.0-47.0); LYMPH # 3.8 10*3/uL (1.3-4.4); LYMPH % 23.4 % (27.0-41.0); MEAN CELL VOLUME 87.9 fl (81.0-99.0); MEAN CORPUSCULAR HGB 28.4 pg (27.0-31.0); MEAN CORPUSCULAR HGB CONC 32.3 g/dl (33.0-37.0); MONO # 1.5 10*3/uL (0.1-1.0); MONO % 9.2 % (3.0-9.0); NEUT # 10.1 10*3/uL (2.3-7.9); PLATELET COUNT AUTOMATED 422 10*3/uL (130-400); RED BLOOD COUNT 4.12 10*6/uL (4.10-5.10); RED CELL DISTRI WIDTH 15.8 % (0-14.5)
[2021-07-26 21:19] LABS: ALBUMIN 1.5 gm/dl (3.1-4.5); ALKALINE PHOSPHATASE 159 U/L (45-117); BUN 21 mg/dl (7-24); CHLORIDE 89 mmol/L (98-107); CREATININE 0.95 mg/dL (0.55-1.02); LIPASE 21 U/L (73-393); POTASSIUM 3.1 mmol/L (3.5-5.1); SGOT/AST 19 IU/L (3-35); SGPT/ALT 15 U/L (12-78); SODIUM 129 mmol/L (136-145); TOTAL PROTEIN 7.3 gm/dL (6.4-8.2)
[2021-07-26 23:30] VITALS: BP 140/70
[2021-07-26 23:45] VITALS: BP 137/65
[2021-07-26 23:48] VITALS: BP 141/102
[2021-07-26 23:50] VITALS: BP 109/65
[2021-07-27] MEDS ORDERED: LEVOTHYROXINE100 MC1 PO (01:18)
[2021-07-27] MEDS ORDERED: BUSPIRONE10 MG PO (01:19)
[2021-07-27] MEDS ORDERED: LIPITOR40 MG PO (01:19)
[2021-07-27] MEDS ORDERED: ZOLOFT50 MG PO (01:19)
[2021-07-27] MEDS ORDERED: ELIQUIS2.5 M1 PO (01:20)
[2021-07-27] MEDS ORDERED: SEROQUEL50 MG PO (01:20)
[2021-07-27] MEDS ORDERED: Ipratropium Brom3 ML INH (01:21)
[2021-07-27 03:14] LABS: BASO % 0.2 % (0.0-1.0); EOS # 0.1 10*3/uL (0.0-0.4); EOS % 1.1 % (1.0-4.0); LYMPH # 1.2 10*3/uL (1.3-4.4); LYMPH % 8.9 % (27.0-41.0); MEAN CELL VOLUME 89.1 fl (81.0-99.0); MEAN CORPUSCULAR HGB 28.5 pg (27.0-31.0); MEAN PLATELET VOLUME 9.1 fl (9.6-12.3); MONO # 0.6 10*3/uL (0.1-1.0); MONO % 4.8 % (3.0-9.0); NEUT # 10.7 10*3/uL (2.3-7.9); NEUT % 83.4 % (47.0-73.0); PLATELET COUNT AUTOMATED 393 10*3/uL (130-400); RED BLOOD COUNT 3.93 10*6/uL (4.10-5.10); RED CELL DISTRI WIDTH 15.6 % (0-14.5); WHITE BLOOD COUNT 12.9 10*3/uL (4.8-10.8)
[2021-07-27 03:27] LABS: ALBUMIN 1.5 gm/dl (3.1-4.5); ALKALINE PHOSPHATASE 147 U/L (45-117); BUN 21 mg/dl (7-24); CHLORIDE 93 mmol/L (98-107); CREATININE 0.95 mg/dL (0.55-1.02); POTASSIUM 3.1 mmol/L (3.5-5.1); SGOT/AST 19 IU/L (3-35); SGPT/ALT 14 U/L (12-78); SODIUM 131 mmol/L (136-145); TOTAL PROTEIN 6.9 gm/dL (6.4-8.2)
[2021-07-27 03:35] LABS: THYROID STIM HORMONE (HS) 0.275 uIU/ml (0.358-4.75)
[2021-07-27 04:00] VITALS: BP 123/70
[2021-07-27 06:55] LABS: FERRITIN 653.5 ng/mL (10.0-291.0); PTH INTACT 6.5 pg/mL (18.5-88.0)
[2021-07-27 08:00] VITALS: BP 129/65
[2021-07-27 12:00] VITALS: BP 103/46
[2021-07-27 16:00] VITALS: BP 135/76
[2021-07-27 19:09] LABS: BILIRUBIN Negative (Negative); BLOOD Negative (Negative); CLARITY Clear (Clear); COLOR Dark Yellow (Yellow); GLUCOSE Negative (Negative); KETONE Trace (Negative); LEUKO ESTERASE Negative (Negative); NITRITE Negative (Negative); PH 5.5 (4.5-8.0)
[2021-07-27 19:59] LABS: BACTERIA 1+; CALCIUM OXALATE CRYSTALS 3+; EPITHELIAL CELLS 0-2; HYALINE CAST TNTC; RBC 0-2 rbc/hpf (0-2)
[2021-07-27 20:00] VITALS: BP 135/64
[2021-07-28] VITALS: BP 130/59
[2021-07-28 04:00] VITALS: BP 122/53
[2021-07-28 06:01] LABS: ALBUMIN 1.5 gm/dl (3.1-4.5); ALKALINE PHOSPHATASE 124 U/L (45-117); BUN 25 mg/dl (7-24); CHLORIDE 97 mmol/L (98-107); CREATININE 0.74 mg/dL (0.55-1.02); POTASSIUM 3.4 mmol/L (3.5-5.1); SGOT/AST 17 IU/L (3-35); SGPT/ALT 13 U/L (12-78); SODIUM 136 mmol/L (136-145); TOTAL PROTEIN 6.6 gm/dL (6.4-8.2)
[2021-07-28 06:12] LABS: HEMATOCRIT 31.8 % (37.0-47.0); MEAN CELL VOLUME 90.9 fl (81.0-99.0); MEAN CORPUSCULAR HGB 28.9 pg (27.0-31.0); MEAN CORPUSCULAR HGB CONC 31.8 g/dl (33.0-37.0); MEAN PLATELET VOLUME 9.7 fl (9.6-12.3); PLATELET COUNT AUTOMATED 379 10*3/uL (130-400); RED CELL DISTRI WIDTH 15.6 % (0-14.5); WHITE BLOOD COUNT 15.1 10*3/uL (4.8-10.8)
[2021-07-28 06:44] LABS: TOTAL CELLS COUNTED 100 #CELLS
[2021-07-28 06:45] LABS: BURR CELLS FEW; OVALOCYTES FEW; PLATELET SUFFICIENCY NORMAL (NORMAL); POLYCHROMASIA SLIGHT; SCHISTOCYTES FEW
[2021-07-28 08:00] VITALS: BP 99/47
[2021-07-28 12:00] VITALS: BP 111/51
[2021-07-28 16:00] VITALS: BP 106/55
[2021-07-28 20:00] VITALS: BP 97/55
[2021-07-29] VITALS (8 sets, daily range): BP systolic 91–141; BP diastolic 38–64
[2021-07-29 05:58] LABS: ALBUMIN 1.3 gm/dl (3.1-4.5); ALKALINE PHOSPHATASE 110 U/L (45-117); BUN 24 mg/dl (7-24); CHLORIDE 103 mmol/L (98-107); CREATININE 0.57 mg/dL (0.55-1.02); POTASSIUM 3.2 mmol/L (3.5-5.1); SGOT/AST 17 IU/L (3-35); SGPT/ALT 13 U/L (12-78); SODIUM 137 mmol/L (136-145); TOTAL PROTEIN 5.9 gm/dL (6.4-8.2)
[2021-07-29 06:14] LABS: HEMATOCRIT 29.1 % (37.0-47.0); MEAN CELL VOLUME 91.8 fl (81.0-99.0); MEAN CORPUSCULAR HGB 28.1 pg (27.0-31.0); MEAN CORPUSCULAR HGB CONC 30.6 g/dl (33.0-37.0); MEAN PLATELET VOLUME 9.2 fl (9.6-12.3); PLATELET COUNT AUTOMATED 288 10*3/uL (130-400); RED BLOOD COUNT 3.17 10*6/uL (4.10-5.10); RED CELL DISTRI WIDTH 15.7 % (0-14.5); WHITE BLOOD COUNT 12.7 10*3/uL (4.8-10.8)
[2021-07-29 06:54] LABS: BURR CELLS FEW; OVALOCYTES FEW; PLATELET SUFFICIENCY NORMAL (NORMAL); ROULEAUX SLIGHT; SCHISTOCYTES FEW; TOTAL CELLS COUNTED 100 #CELLS
[2021-07-30 06:15] VITALS: BP 103/72
[2021-07-30 06:37] LABS: HEMATOCRIT 32.6 % (37.0-47.0); MEAN CELL VOLUME 92.6 fl (81.0-99.0); MEAN CORPUSCULAR HGB 27.8 pg (27.0-31.0); MEAN CORPUSCULAR HGB CONC 30.1 g/dl (33.0-37.0); MEAN PLATELET VOLUME 9.2 fl (9.6-12.3); PLATELET COUNT AUTOMATED 321 10*3/uL (130-400); RED BLOOD COUNT 3.52 10*6/uL (4.10-5.10); RED CELL DISTRI WIDTH 15.9 % (0-14.5); WHITE BLOOD COUNT 14.9 10*3/uL (4.8-10.8)
[2021-07-30 06:46] LABS: ALBUMIN 1.4 gm/dl (3.1-4.5); ALKALINE PHOSPHATASE 116 U/L (45-117); BUN 26 mg/dl (7-24); CHLORIDE 103 mmol/L (98-107); CREATININE 0.73 mg/dL (0.55-1.02); POTASSIUM 4.1 mmol/L (3.5-5.1); SGOT/AST 19 IU/L (3-35); SGPT/ALT 16 U/L (12-78); SODIUM 138 mmol/L (136-145); TOTAL PROTEIN 6.3 gm/dL (6.4-8.2)
[2021-07-30 07:54] LABS: BURR CELLS FEW; PLATELET SUFFICIENCY NORMAL (NORMAL); TOTAL CELLS COUNTED 100 #CELLS
[2021-07-30 07:55] LABS: POLYCHROMASIA SLIGHT; SCHISTOCYTES FEW
[2021-07-30 07:58] LABS: ATYPICAL LYMPHS 1 % (0-0)
[2021-07-30 08:00] VITALS: BP 121/90
[2021-07-30 12:00] VITALS: BP 99/56
[2021-07-30 16:00] VITALS: BP 109/50
[2021-07-30 20:00] VITALS: BP 90/40
[2021-07-30 21:10] VITALS: BP 100/50
[2021-07-31] VITALS: BP 106/48; BP 108/46
[2021-07-31 06:35] LABS: HEMATOCRIT 31.6 % (37.0-47.0); MEAN CELL VOLUME 91.3 fl (81.0-99.0); MEAN CORPUSCULAR HGB 28.3 pg (27.0-31.0); MEAN PLATELET VOLUME 9.7 fl (9.6-12.3); PLATELET COUNT AUTOMATED 346 10*3/uL (130-400); RED BLOOD COUNT 3.46 10*6/uL (4.10-5.10); RED CELL DISTRI WIDTH 16.3 % (0-14.5); WHITE BLOOD COUNT 19.8 10*3/uL (4.8-10.8)
[2021-07-31 06:47] LABS: ALBUMIN 1.4 gm/dl (3.1-4.5); BUN 29 mg/dl (7-24); CHLORIDE 105 mmol/L (98-107); CREATININE 0.84 mg/dL (0.55-1.02); POTASSIUM 3.3 mmol/L (3.5-5.1); SGOT/AST 20 IU/L (3-35); SGPT/ALT 18 U/L (12-78); SODIUM 142 mmol/L (136-145); TOTAL PROTEIN 6.4 gm/dL (6.4-8.2)
[2021-07-31 06:49] LABS: ALKALINE PHOSPHATASE 117 U/L (45-117)
[2021-07-31 08:00] VITALS: BP 139/58
[2021-07-31 08:41] LABS: BASOPHILS 1 % (0-1); PLATELET SUFFICIENCY NORMAL (NORMAL); TOTAL CELLS COUNTED 100 #CELLS
[2021-07-31 12:00] VITALS: BP 90/50
[2021-07-31 16:00] VITALS: BP 122/88
[2021-07-31] MEDS ORDERED: DECADRON6 M1 PO (17:02)
[2021-07-31] MEDS ORDERED: ELIQUIS5 M1 PO (17:02)
== END 2021-07-31 17:09 | disposition hospice, inpatient (51) | DRG 871 ==
LOC: ED 20:37 → ICCU 22:21 → EDHOLD 22:21 → 4E 22:21 → ICCU 22:33 → 4E 07-29 21:29
PROVIDERS: Emergency Medicine; Internal Medicine; Student in an Organized Health Care Education/Training Program; ADMIT Internal Medicine; ATTEND Internal Medicine
PROC: XW033E5 Introduction of Remdesivir Anti-infective into Peripheral Vein, Percutaneous Approach, New Technology Group 5 (ICD-10-PCS; principal; 2021-07-28)
PROC: 05HY33Z Insertion of Infusion Device into Upper Vein, Percutaneous Approach (ICD-10-PCS; 2021-07-28)
DX: A41.9 Sepsis, unspecified organism (principal); J96.21 Acute and chronic respiratory failure with hypoxia; E43 Unspecified severe protein-calorie malnutrition; U07.1 COVID-19; J18.9 Pneumonia, unspecified organism; I47.1 Supraventricular tachycardia; J44.1 Chronic obstructive pulmonary disease with (acute) exacerbation; C34.91 Malignant neoplasm of unspecified part of right bronchus or lung; E87.2 Acidosis; E87.1 Hypo-osmolality and hyponatremia; R65.20 Severe sepsis without septic shock; I48.0 Paroxysmal atrial fibrillation; K21.9 Gastro-esophageal reflux disease without esophagitis; R73.9 Hyperglycemia, unspecified; E87.6 Hypokalemia; D64.9 Anemia, unspecified; E87.8 Other disorders of electrolyte and fluid balance, not elsewhere classified; I10 Essential (primary) hypertension; L40.9 Psoriasis, unspecified; J44.9 Chronic obstructive pulmonary disease, unspecified; E66.01 Morbid (severe) obesity due to excess calories; Z51.5 Encounter for palliative care; Z90.710 Acquired absence of both cervix and uterus; Z87.891 Personal history of nicotine dependence; Z82.49 Family history of ischemic heart disease and other diseases of the circulatory system; Z80.1 Family history of malignant neoplasm of trachea, bronchus and lung; Z98.51 Tubal ligation status; Z86.718 Personal history of other venous thrombosis and embolism; Z79.51 Long term (current) use of inhaled steroids; Z79.899 Other long term (current) drug therapy; Z68.33 Body mass index [BMI] 33.0-33.9, adult

== ENCOUNTER 2021-07-31 17:09 | Inpatient (IN) | payer OTHER ==
[~2021-07-31] VITALS: Ht 160 cm; Wt 86.0 kg
[~2021-07-31 17:09] MED LIST changes: +BUSPIRONE10 MG PO; +DECADRON6 M1 PO; +ELIQUIS2.5 M1 PO; +ELIQUIS5 M1 PO; +Ipratropium Brom3 ML INH; +LEVOTHYROXINE100 MC1 PO; +LIPITOR40 MG PO; +SEROQUEL50 MG PO; +ZOLOFT50 MG PO
[2021-07-31 20:00] VITALS: BP 107/61; BP 122/50
[2021-08-01 01:53] VITALS: BP 139/48
[2021-08-01 08:00] VITALS: BP 147/50
[2021-08-01 12:00] VITALS: BP 113/39
[2021-08-01 16:00] VITALS: BP 123/42
[2021-08-01 20:00] VITALS: BP 120/43
[2021-08-02 08:00] VITALS: BP 134/44
[2021-08-02 16:00] VITALS: BP 119/47
[2021-08-02 20:00] VITALS: BP 109/36
== END 2021-08-03 02:49 | DRG 193 ==
LOC: 4E 17:09
PROVIDERS: ADMIT Internal Medicine; ATTEND Internal Medicine
DX: J18.9 Pneumonia, unspecified organism (principal); J96.21 Acute and chronic respiratory failure with hypoxia; J44.1 Chronic obstructive pulmonary disease with (acute) exacerbation; C34.91 Malignant neoplasm of unspecified part of right bronchus or lung; J44.0 Chronic obstructive pulmonary disease with (acute) lower respiratory infection; L40.9 Psoriasis, unspecified; K21.9 Gastro-esophageal reflux disease without esophagitis; I10 Essential (primary) hypertension; Z51.5 Encounter for palliative care